=== PATIENT | female | born 1985 | race Caucasian/White ===

== ENCOUNTER 2021-12-02 19:11 | Emergency (ER) | payer MEDICAID ==
[~2021-12-02] VITALS: Ht 167.6 cm; Wt 56.0 kg
[2021-12-02 21:16] LABS: CHLORIDE 106 mEq/L (98-107)
[2021-12-02 21:17] LABS: BASOPHILS % 0.7 % (0.0-2.0); HEMATOCRIT. 45.6 % (36.0-48.0); HEMOGLOBIN. 15.1 g/dL (12.0-16.0); MEAN CORPUSCULAR HEMOGLOBIN 27.7 pg (28.0-32.0); MEAN CORPUSCULAR VOLUME 83.6 fL (81.0-99.0); MEAN PLATELET VOLUME 7.7 fl (7.4-10.4); MONOCYTES % 8.7 % (2.0-8.0); NEUTROPHILS % 69.6 % (40.0-76.0); PLATELET 301 x1000/uL (130-400); RED BLOOD CELL COUNT 5.46 mill/uL (4.2-5.4); RED CELL DISTRIBUTION WIDTH 14.4 % (11.6-14.6)
[2021-12-02 21:20] LABS: ETHANOL BLOOD < 10 mg/dL
[2021-12-02] MEDS ORDERED: POTASSIUM CHLORIDE 20MEQ TABLET SR PO NR (23:15)
[2021-12-02 23:51] LABS: HCG SCREEN NEGATIVE
[2021-12-03] MEDS: OLANZAPINE 5MG TABLET ODT PO SCH ×2 (10:00→17:00)
[2021-12-04] MEDS: OLANZAPINE 5MG TABLET ODT PO SCH (09:54)
[2021-12-04 17:02] VITALS: BP 109/64
== END 2021-12-04 17:04 | disposition home or self-care (01) ==
LOC: ER 19:11
DX: F23 Brief psychotic disorder (principal); E87.6 Hypokalemia; Z91.14 Patient's other noncompliance with medication regimen; Z20.822 Contact with and (suspected) exposure to COVID-19
CPT/HCPCS: 36415; 80053; 80307; 80320; 80329; 84703; 85025; 87426; 93005; 99285; G0480